=== PATIENT | male | born 1950 | race Caucasian/White ===

== ENCOUNTER → 2016-12-16 | Outpatient (CLI) | payer OTHER ==
--- NOTE | 2016-12-16 15:03 | CT ---
CT Chest Without Contrast 1155 hours Indication: Tobacco use. Evaluate for pulmonary nodule. Technique: Spiral images were obtained through the chest. Images were reviewed in multiple planes . Dose reduction techniques were utilized. Comparison: No prior studies available. Findings: Lung and large airways: No significant pulmonary nodules. There is a band of scarring in the left lo wer lobe posteriorly as well as right lung base posteriorly at the costophrenic angle. Bronchi: No significant bronchial wall thickening Pleura: Normal. Vessels: The thoracic aorta has a normal contour. There is no aneurysm or dissection. There is some s cattered atherosclerotic calcified plaques at the level of the aortic root and associated with the ao rtic valves as well as involving the proximal LAD. Heart and pericardium: Normal. Mediastinum and minoo: No mass or lymphadenopathy. Chest wall and lower neck: Normal. Limited upper abdomen: Surgical suture is seen at the junction of the liver with the inferior vena ca va along the superior and inferior margins. The patient apparently has had history of previous liver transplant. Skeletal system: Vertebral body heights are well-maintained. There are no lytic or sclerotic osseous lesions. There is underlying degenerative disk disease mid and lower thoracic spine. Old healed fract ures are seen associated with the posterior lateral right 10th and 11th ribs with ununited fracture o f the posterolateral right ninth rib. Impression: 1. No evidence of pulmonary nodule within the lung parenchyma. 2. Band of scarring left lower lobe posteriorly as well as right lung base at the costophrenic angle posteriorly. 3. Scattered arteriosclerotic calcified plaques of the level of the aortic root and in the aortic demetra ves as well as proximal LAD. 4. Surgical suture associated with the junction of the liver with the IVC along superior and inferior margins this patient with history of previous liver transplant.
== END ==
LOC: CIMAGING 11:45
PROVIDERS: ATTEND Family Medicine
DX: R91.8 Other nonspecific abnormal finding of lung field (principal)
CPT/HCPCS: 71250-PO

== ENCOUNTER 2017-10-11 12:24 | Inpatient (IN) | payer OTHER ==
[2017-10-11] MEDS ORDERED: NS 1,000 ML IV ONE ×3 (13:06→13:22)
[2017-10-11 13:15] LABS: % IMMATURE GRANULYOCYTES 0.6 % (0.0-1.1); ABSOLUTE IMMATURE GRANULOCYTES 0.06 10^3/uL (0.00-0.10); ADD DIFF? NO; ADD MORPH? NO; ADD SCAN? NO; ATYPICAL LYMPHOCYTE FLAG 0 (0-99); FRAGMENT RBC FLAG 0 (0-99); HEMATOCRIT 42.4 % (40.0-51.0); HEMOGLOBIN 14.4 g/dL (13.7-17.5); LEFT SHIFT FLG 0 (0-99); LIPEMIA HEMOLYSIS FLAG 90 (0-99); MEAN CELL HEMOGLOBIN 29.6 pg (27.9-34.1); MEAN CELL VOLUME 87.2 fL (81.5-99.8); MEAN PLATELET VOLUME 10.6 fL (8.7-11.7); PLATELET CLUMPS FLAG 0 (0-99); PLATELET COUNT 270 10^3/uL (150-400); RED BLOOD CELL COUNT 4.86 10^6/uL (4.40-6.38); RED CELL DISTRIBUTION WIDTH 14.9 % (11.5-15.2)
[2017-10-11] MEDS ORDERED: INSULIN REGULAR HUMAN 100 UNIT/ML IVP ONE (13:21)
--- NOTE | 2017-10-11 13:23 | EDPHY ---
HPI/HX/ROS/PE/MDM Narrative: CHIEF COMPLAINT: Elevated BGL, malaise HISTORY OF PRESENT ILLNESS: The patient is a 67 y/o male with a history of diabetes type two who arrives at the recommendation of his PCP for elevated BGL and associated malaise. He had a knee surgery one month ago and has noticed a slowly increasing BGL since then around 300. He normally just uses metformin and does not check his BGL daily. Five days ago he saw his PCP and his BGL was noted to be around 450. He was prescribed Lantus, but given no instructions on how to use it so he has not taken a dose yet. He saw his PCP today for continued hyperglycemia and their glucometer read "high" so they assumed it was over 600 and sent him to the ED for evaluation. He complains of progressively worsening symptoms for the past days to weeks including fuzzy vision, dizziness when standing, fatigue, nausea, polyuria, and two episodes of vomiting yesterday. He has some chronic lung congestion that may be slightly worse recently. He denies syncope, fever, flank pain, urinary pain, hematuria, chest pain, abdominal pain, chills, shortness of breath, palpitations, diarrhea, urinary complaints, or headache. He does not take anticoagulants and no longer takes a daily aspirin. REVIEW OF SYSTEMS: Aside from elements discussed in the HPI, a comprehensive 10-point review of systems was reviewed and is negative. PAST MEDICAL HISTORY: Liver transplant 4 years ago - Prograf and CellCept, hepatitis C (resolved), osteoarthritis with several joint replacements, hypertension - not medicated, hyperlipidemia SOCIAL HISTORY: PCP: Dr. Roberts VITAL SIGNS: Reviewed by me GENERAL: Well-developed, thin, resting comfortably in no respiratory distress. Not tachypneic. No kussmaul breathing. HEENT: Atraumatic. Eyes: No icterus, no injection. Mouth: very dry mucous membranes. No erythema or lesions. Neck: supple with no adenopathy. LUNGS: Clear to auscultation bilaterally, no wheezes, rhonchi or rales. CARDIAC: Regular rate and rhythm, no rubs, murmurs or gallops. ABDOMEN: Soft, nontender, nondistended, bowel sounds normal. BACK: No CVA tenderness. EXTREMITIES: No trauma. No edema. Range of motion is normal throughout. NEURO: Alert and oriented, grossly nonfocal. SKIN: Warm and dry, no rash. PSYCHIATRIC: Normal mentation, no agitation. Portions of this note were transcribed by a adjunct faculty for medical terminology. I personally performed a history, physical exam, medical decision making, and confirmed accuracy of information the transcribed note. ED Course: This is a 67 y/o male with a history of diabetes type two and is status post liver transplant who presents with a one-month gradually increasing BGL and associated malaise. He does not consistently measure his BGL at home and only takes metformin, though he was prescribed Lantus five days ago without instructions for use. He is thin but generally well-appearing aside from very dry mucous membranes. His BGL is >350 here on glucometer. Plan for DKA work up including IV, labs, UA, EKG, chest x-ray, and medical treatment with IV fluids and insulin. 2L IV NS and 10 units insulin ordered. The 12 lead EKG was interpreted by myself. Sinus rhythm rate 61. See hard copy and/or "tracemaster" electronic copy for interpretation. Chest x-ray: nothing acute. Labs show hyperglycemia of 693, hyponatremia of 125, and hypochloridemia of 88. His UA is positive for glucose and has trace ketones. His alkphos is elevated, though this may be related to his liver transplant. Spoke with hospitalist service. Dr. Yang accepts admission. Reevaluated patient and discussed plan for admission, which he agrees to. MDM: Differential diagnoses for the patient's symptom complex was considered including but not limited to DKA, hyperglycemia, occult infection, medication noncompliance, viral syndrome, infection, pneumonia. - Data Points Imaging Results: Imaging Impressions Chest X-Ray 10/11/17 13:21 Impression: No acute abnormality. Imaging: I viewed and interpreted images myself Laboratory Results: Laboratory Results 10/11/17 13:05 10/11/17 13:05 10/11/17 10/11/17 10/11/17 13:05 13:05 13:05 WBC 10.55 10^3/uL H 10^3/uL (3.80-9.50) RBC 4.86 10^6/uL 10^6/uL (4.40-6.38) Hgb 14.4 g/dL g/dL (13.7-17.5) Hct 42.4 % % (40.0-51.0) MCV 87.2 fL fL (81.5-99.8) MCH 29.6 pg pg (27.9-34.1) MCHC 34.0 g/dL g/dL (32.4-36.7) RDW 14.9 % % (11.5-15.2) Plt Count 270 10^3/uL 10^3/uL (150-400) MPV 10.6 fL fL (8.7-11.7) Neut % (Auto) 87.4 % H % (39.3-74.2) Lymph % (Auto) 5.4 % L % (15.0-45.0) Ceiba % (Auto) 5.8 % % (4.5-13.0) Eos % (Auto) 0.6 % % (0.6-7.6) Baso % (Auto) 0.2 % L % (0.3-1.7) Nucleat RBC Rel Count 0.0 % % (0.0-0.2) Absolute Neuts (auto) 9.23 10^3/uL H 10^3/uL (1.70-6.50) Absolute Lymphs (auto) 0.57 10^3/uL L 10^3/uL (1.00-3.00) Absolute Monos (auto) 0.61 10^3/uL 10^3/uL (0.30-0.80) Absolute Eos (auto) 0.06 10^3/uL 10^3/uL (0.03-0.40) Absolute Basos (auto) 0.02 10^3/uL 10^3/uL (0.02-0.10) Absolute Nucleated RBC 0.00 10^3/uL 10^3/uL (0-0.01) Immature Gran % 0.6 % % (0.0-1.1) Immature Gran # 0.06 10^3/uL 10^3/uL (0.00-0.10) Turbidity Cancelled Sodium Cancelled 125 mEq/L L mEq/L (134-144) Potassium Cancelled 5.4 mEq/L H mEq/L (3.5-5.2) Chloride Cancelled 88 mEq/L L mEq/L (97-110) Carbon Dioxide Cancelled 20 mEq/l L mEq/l (22-31) Anion Gap Cancelled 17 mEq/L H mEq/L (8-16) BUN Cancelled 19 mg/dL mg/dL (7-23) Creatinine Cancelled 0.7 mg/dL mg/dL (0.7-1.3) Estimated GFR Cancelled > 60 Glucose Cancelled 693 mg/dL H* mg/dL (70-100) Calcium Cancelled 10.1 mg/dL mg/dL (8.5-10.4) Phosphorus 4.3 mg/dL mg/dL (2.5-4.5) Magnesium 1.6 mg/dL mg/dL (1.6-2.3) Total Bilirubin Cancelled 0.6 mg/dL mg/dL (0.1-1.4) Conjugated Bilirubin Cancelled Unconjugated Bilirubin Cancelled AST Cancelled 56 IU/L IU/L (17-59) ALT Cancelled 81 IU/L H IU/L (21-72) Alkaline Phosphatase Cancelled 1362 IU/L H IU/L (38-126) Troponin I < 0.012 ng/mL ng/mL (0.000-0.034) Total Protein Cancelled 7.0 g/dL g/dL (6.3-8.2) Albumin Cancelled 3.9 g/dL g/dL (3.5-5.0) Lipase 48 IU/L IU/L (23-300) Beta-Hydroxybutyrate 2.41 mmol/L H mmol/L (0.02-0.27) Specimen Hemolysis Cancelled Urine Color Urine Appearance Urine pH Ur Specific Perry Urine Protein Urine Ketones Urine Blood Urine Nitrate Urine Bilirubin Urine Urobilinogen Ur Leukocyte Esterase Urine RBC Urine WBC Ur Epithelial Cells Urine Mucus Urine Glucose 10/11/17 12:48 WBC RBC Hgb Hct MCV MCH MCHC RDW Plt Count MPV Neut % (Auto) Lymph % (Auto) [place] % (Auto) Eos % (Auto) Baso % (Auto) Nucleat RBC Rel Count Absolute Neuts (auto) Absolute Lymphs (auto) Absolute Monos (auto) Absolute Eos (auto) Absolute Basos (auto) Absolute Nucleated RBC Immature Gran % Immature Gran # Turbidity Sodium Potassium Chloride Carbon Dioxide Anion Gap BUN Creatinine Estimated GFR Glucose Calcium Phosphorus Magnesium Total Bilirubin Conjugated Bilirubin Unconjugated Bilirubin AST ALT Alkaline Phosphatase Troponin I Total Protein Albumin Lipase Beta-Hydroxybutyrate Specimen Hemolysis Urine Color YELLOW Urine Appearance CLEAR Urine pH 5.0 (5.0-7.5) Ur Specific Perry 1.028 (1.002-1.030) Urine Protein NEGATIVE (NEGATIVE) Urine Ketones TRACE H (NEGATIVE) Urine Blood NEGATIVE (NEGATIVE) Urine Nitrate NEGATIVE (NEGATIVE) Urine Bilirubin NEGATIVE (NEGATIVE) Urine Urobilinogen NEGATIVE EU EU (0.2-1.0) Ur Leukocyte Esterase NEGATIVE (NEGATIVE) Urine RBC 5-10 /hpf H /hpf (0-3) Urine WBC 1-3 /hpf /hpf (0-3) Ur Epithelial Cells NONE SEEN /lpf /lpf (NONE-1+) Urine Mucus TRACE /lpf /lpf (NONE-1+) Urine Glucose 3+ H (NEGATIVE) Medications Given: Atorvastatin Calcium (Lipitor) 40 mg PO DAILY18 [facility] Stop: 04/09/18 17:59 Last Admin: 10/11/17 18:36 Dose: 40 mg Insulin Glargine (Lantus Syringe) 15 units SC HS [facility] Stop: 04/09/18 19:14 Last Admin: 10/11/17 21:57 Dose: 15 units Insulin Human Regular (Humulin R) 0 unit SC ACHS EMILY PRN Reason: Protocol Stop: 04/09/18 17:29 Last Admin: 10/11/17 21:57 Dose: 6 units Metformin HCl (Glucophage) 500 mg PO BIDMEAL [facility] Stop: 04/09/18 17:59 Last Admin: 10/11/17 18:36 Dose: 500 mg Mycophenolate Mofetil (Cellcept) 250 mg PO BID [facility] Stop: 04/09/18 20:59 Last Admin: 10/11/17 21:56 Dose: 250 mg Tacrolimus (Prograf) 2 mg PO BID [facility] Stop: 04/09/18 20:59 Last Admin: 10/11/17 21:56 Dose: 2 mg Ursodiol (Actigall) 600 mg PO BID [facility] Stop: 04/09/18 20:59 Last Admin: 10/11/17 21:56 Dose: 600 mg Discontinued Medications Sodium Chloride (Ns) 1,000 mls @ 3,000 mls/hr IV ONCE ONE Stop: 10/11/17 13:25 Last Admin: 10/11/17 13:08 Dose: 1,000 mls Sodium Chloride (Ns) 1,000 mls @ 0 mls/hr IV ONCE ONE; Wide Open PRN Reason: Protocol Stop: 10/11/17 13:22 Last Admin: 10/11/17 13:33 Dose: 1,000 mls Sodium Chloride (Ns) 1,000 mls @ 0 mls/hr IV ONCE ONE; Wide Open PRN Reason: Protocol Stop: 10/11/17 13:23 Last Admin: 10/11/17 14:01 Dose: Not Given Insulin Human Regular 100 unit / Miscellaneous Medication 1 ea/ Sodium Chloride 101 mls @ 4 mls/hr IV EDNOW ONE PRN Reason: Protocol Stop: 10/12/17 15:38 Last Admin: 10/11/17 16:29 Dose: Not Given Sodium Chloride (Ns) 1,000 mls @ 150 mls/hr IV CONT EMILY Stop: 04/09/18 14:59 Last Admin: 10/11/17 18:08 Dose: 1,000 mls Insulin Human Regular (Humulin R) 10 unit IVP EDNOW ONE Stop: 10/11/17 13:22 Last Admin: 10/11/17 13:35 Dose: 10 units General Time Seen by Provider: 10/11/17 12:59 Initial Vital Signs: Initial Vital Signs Temperature (C) 36.3 C 10/11/17 12:30 Heart Rate 97 10/11/17 12:30 Respiratory Rate 18 10/11/17 12:30 Blood Pressure 123/70 H 10/11/17 12:30 O2 Sat (%) 93 10/11/17 12:30 O2 Delivery Mode Room Air Allergies/Adverse Reactions: Penicillins Allergy (Severe, Verified 10/11/17 12:26) Anaphylaxis Home Medications: Medication Instructions Recorded Tacrolimus [Prograf] 2 mg PO BID 01/01/14 Allopurinol [Allopurinol 300 MG 300 mg PO DAILY 10/11/17 (RX)] Atorvastatin Calcium [Lipitor 40 40 mg PO DAILY18 10/11/17 mg (*)] Doxazosin Mesylate [Cardura 4 MG 4 mg PO DAILY 10/11/17 (*)] Insulin Glargine [Lantus 100 5 units SC HS 10/11/17 UNITS/ML (*)] Levothyroxine [Synthroid 88 mcg 88 mcg PO DAILY06 10/11/17 (*)] Mycophenolate Mofetil [Cellcept 250 mg PO BID 10/11/17 250 mg (RX)] Ursodiol [Actigall 300MG (*)] 600 mg PO BID 10/11/17 metFORMIN HCL [Glucophage 500 mg 500 mg PO BIDMEAL 10/11/17 (*)] oxyCODONE IR [Oxycodone Ir (*)] 10 mg PO Q6HRS PRN 10/11/17 Departure - Departure Disposition: [facility] Acute Clinical Impression: Hyponatremia, Hypochloremia DKA (diabetic ketoacidoses) Qualifiers: Diabetes mellitus type: type 2 Diabetes mellitus complication detail: without coma Qualified Code(s): E13.10 - Other specified diabetes mellitus with ketoacidosis without coma Condition: Fair Report Scribed for: Adele Saleh Report Scribed by: Chantal Landa Date of Report: 10/11/17 Time of Report: 13:23
[2017-10-11 13:33] LABS: ALANINE AMINOTRANSFERASE 81 IU/L (21-72); ALBUMIN 3.9 g/dL (3.5-5.0); ALKALINE PHOSPHATASE 1362 IU/L (38-126); ANION GAP 17 mEq/L (8-16); ASPARTATE AMINOTRANSFERASE 56 IU/L (17-59); BILIRUBIN,TOTAL 0.6 mg/dL (0.1-1.4); CALCIUM 10.1 mg/dL (8.5-10.4); CARBON DIOXIDE 20 mEq/l (22-31); CHLORIDE 88 mEq/L (97-110); CREATININE 0.7 mg/dL (0.7-1.3); GLOMERULAR FILTRATION RATE > 60; POTASSIUM 5.4 mEq/L (3.5-5.2); SODIUM 125 mEq/L (134-144)
[2017-10-11 13:49] LABS: COLOR YELLOW; LEUKOCYTE ESTERASE,URINE NEGATIVE (NEGATIVE); NITRITE,URINE NEGATIVE (NEGATIVE)
[2017-10-11 13:53] LABS: GLUCOSE 693 mg/dL (70-100)
[2017-10-11 14:02] LABS: MUCUS TRACE /lpf (NONE-1+)
[2017-10-11 14:15] LABS: MAGNESIUM 1.6 mg/dL (1.6-2.3)
[2017-10-11] MEDS ORDERED: INSULIN REGULAR HUMAN 100 UNIT, COSIGN. REQUIRED 1 EA in NS 100 ML IV ONE (14:24)
[2017-10-11 14:26] LABS: TROPONIN I < 0.012 ng/mL (0.000-0.034)
--- NOTE | 2017-10-11 14:39 | CPEKG ---
Heart Rate: 61 RR Interval: 984 P-R Interval: 148 QRSD Interval: 86 QT Interval: 408 QTC Interval: 411 P [place]: 11 QRS [place]: 52 T Wave [place]: 35 EKG Severity - NORMAL ECG - EKG Impression: SINUS RHYTHM Electronically Signed By: Adele Saleh 11-Oct-2017 22:42:15
[2017-10-11] MEDS ORDERED: D50W 25 GM/50 ML VIAL IVP PRN (14:48)
[2017-10-11] MEDS ORDERED: ONDANSETRON 4 MG/2 ML VIAL IVP PRN (14:50)
[2017-10-11] MEDS ORDERED: PROMETHAZINE HCL 25 MG/ML INJ IVP PRN (14:50)
[2017-10-11] MEDS ORDERED: ACETAMINOPHEN 325 MG TAB PO PRN (14:50)
[2017-10-11] MEDS ORDERED: oxyCODONE IR 5 MG TAB PO PRN (14:51)
[2017-10-11] MEDS ORDERED: NS 1,000 ML IV SCH ×2 (15:00)
[2017-10-11 15:26] LABS: B-HYDROXYBUTYRATE 2.41 mmol/L (0.02-0.27)
[2017-10-11 15:36] LABS: ANION GAP 7 mEq/L (8-16); CALCIUM 8.9 mg/dL (8.5-10.4); CARBON DIOXIDE 24 mEq/l (22-31); CHLORIDE 96 mEq/L (97-110); CREATININE 0.6 mg/dL (0.7-1.3); GLOMERULAR FILTRATION RATE > 60; GLUCOSE 443 mg/dL (70-100); POTASSIUM 4.5 mEq/L (3.5-5.2); SODIUM 127 mEq/L (134-144)
[2017-10-11] MEDS: ATORVASTATIN CALCIUM 40 MG TAB PO SCH (18:36)
[2017-10-11] MEDS: metFORMIN HCL 500 MG TAB PO SCH (18:36)
[2017-10-11] MEDS: INSULIN REGULAR HUMAN 100 UNIT/ML SC SCH ×2 (18:37→21:57)
[2017-10-11] MEDS ORDERED: INSULIN GLARGINE 100 UNITS/ML SYRINGE SC SCH (19:15)
--- NOTE | 2017-10-11 20:16 | GHP ---
[f rep st] HISTORY AND PHYSICAL DATE OF ADMISSION: 10/11/2017 CHIEF COMPLAINT: Hyperglycemia. HISTORY: The patient is a 67-year-old male who saw his primary care doctor 5 days ago and at that ti me his glucose was 450. He had recently been prescribed Lantus; however, he does not know how to adm inister it. He was hoping to get instructed on that today at his primary care doctor's office, but w favian they saw him they referred him to the emergency room. He describes 1 month of blurry vision, diz ziness, polyuria, polydipsia, nausea, vomiting, decreased p.o. intake and unintentional 5 pound weigh t loss. PAST MEDICAL HISTORY: 1. Diabetes type 2. 2. Liver transplantation done at [facility] a couple of years ago. 3. Hepatitis C status post Harvoni. MEDICATIONS: Please see computer record for full detailed list. ALLERGIES: Penicillin. SOCIAL HISTORY: He smokes a pack of cigarettes every 3 days. He drinks a couple of beers per day. He lives with 2 roommates. He is retired from the [employer] business. 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 REVIEW OF SYSTEMS: A complete review of systems obtained. Review of systems is negative regarding c onstitutional, HEENT, GI, pulmonary, cardiovascular, , hematology, skin, musculoskeletal, endocrine , psych except for positives and negatives as in HPI. FAMILY HISTORY: Reviewed and noncontributory to presenting complaint. PHYSICAL EXAMINATION: GENERAL: Well-developed, well-nourished male, in no distress. VITAL SIGNS: Temperature 36.3, pulse 63, blood pressure 123/70, satting 95% on room air. EYES: Normal conjunctiv ae. Pupils react to light. ENT: Normal ears and nose. Hearing intact. Normal teeth. Oropharynx moist. NECK: Trachea midline. No thyromegaly. CHEST: Normal effort. LUNGS: Clear to auscultati on bilaterally. CARDIOVASCULAR: Regular rhythm. No murmur. No lower extremity edema. ABDOMEN: S oft, nontender. No hepatosplenomegaly. SKIN: Warm, dry, intact. No rash. MUSCULOSKELETAL: No cy anosis or clubbing. Strength 5/5 upper and lower extremities. NEURO: Cranial nerves intact. Linda l sensation to light touch. PSYCHIATRIC: Alert and oriented x3. Normal affect. Normal judgment an d insight. Normal memory. LABS: White count 10.55, hematocrit 42.4, platelets 270. Sodium 125, potassium 5.5, chloride 88, bi carb 20, anion gap initially 7. Repeat Chem-7 shows anion gap down to 7. BUN 19, creatinine 0.7, gl ucose 643, ALT is 81, alk phos 1,362. Troponins negative. Urinalysis is negative. EKG viewed by me . My personal interpretation is normal sinus rhythm. No ST-T wave changes. Chest x-ray is negative . ASSESSMENT/PLAN: 1. Hyperglycemia with mild diabetic ketoacidosis. He got an initial insulin bolus in the emergency room with a couple liters of fluid and recheck of his Chem-7 shows that his gap has already closed so he was not started on insulin drip. I will start him on Lantus and he will need education regarding administration. We will continue IV fluid. 2. Hyponatremia. This is an effect of his hyperglycemia. 3. Liver transplantation. Continue his chronic immunosuppressives, including CellCept and Prograf. We will check an ultrasound given his abnormal LFTs. 4. Hepatitis C status post Harvoni. CODE STATUS: Full. ADMISSION STATUS: We will admit to observation as he might be able to go home tomorrow depending on clinical course. DVT PROPHYLAXIS: He is moderate risk. We will place him on subcu Lovenox. /[id number]/MODL
[2017-10-11] MEDS: MYCOPHENOLATE MOFETIL 250 MG CAP PO SCH (21:56)
[2017-10-11] MEDS: URSODIOL 300 MG CAP PO SCH (21:56)
[2017-10-11] MEDS: TACROLIMUS 1 MG CAP PO SCH (21:56)
[2017-10-12] MEDS: LEVOTHYROXINE 88 MCG TAB PO SCH (04:41)
[2017-10-12 05:55] LABS: % IMMATURE GRANULYOCYTES 0.3 % (0.0-1.1); ABSOLUTE IMMATURE GRANULOCYTES 0.03 10^3/uL (0.00-0.10); ADD DIFF? NO; ADD MORPH? NO; ADD SCAN? NO; ATYPICAL LYMPHOCYTE FLAG 0 (0-99); FRAGMENT RBC FLAG 0 (0-99); HEMATOCRIT 37.3 % (40.0-51.0); HEMOGLOBIN 13.3 g/dL (13.7-17.5); LEFT SHIFT FLG 0 (0-99); LIPEMIA HEMOLYSIS FLAG 90 (0-99); MEAN CELL HEMOGLOBIN 30.5 pg (27.9-34.1); MEAN CELL HEMOGLOBIN CONCENTR. 35.7 g/dL (32.4-36.7); MEAN CELL VOLUME 85.6 fL (81.5-99.8); MEAN PLATELET VOLUME 10.3 fL (8.7-11.7); PLATELET CLUMPS FLAG 0 (0-99); PLATELET COUNT 248 10^3/uL (150-400); RED BLOOD CELL COUNT 4.36 10^6/uL (4.40-6.38); RED CELL DISTRIBUTION WIDTH 14.8 % (11.5-15.2)
[2017-10-12 05:59] LABS: INR 1.12 (0.83-1.16); PROTIME(PATIENT) 14.3 SEC (12.0-15.0)
[2017-10-12 06:20] LABS: ALANINE AMINOTRANSFERASE 74 IU/L (21-72); ALBUMIN 2.7 g/dL (3.5-5.0); ALKALINE PHOSPHATASE 854 IU/L (38-126); ANION GAP 8 mEq/L (8-16); ASPARTATE AMINOTRANSFERASE 73 IU/L (17-59); BILIRUBIN,TOTAL 0.4 mg/dL (0.1-1.4); BILIRUBIN-CONJUGATED 0.3 mg/dL (0.0-0.5); BILIRUBIN-UNCONJUGATED 0.1 mg/dL (0.0-1.1); CALCIUM 8.9 mg/dL (8.5-10.4); CARBON DIOXIDE 24 mEq/l (22-31); CHLORIDE 99 mEq/L (97-110); CREATININE 0.6 mg/dL (0.7-1.3); GLOMERULAR FILTRATION RATE > 60; GLUCOSE 281 mg/dL (70-100); MAGNESIUM 1.4 mg/dL (1.6-2.3); POTASSIUM 4.5 mEq/L (3.5-5.2); SODIUM 131 mEq/L (134-144); TOTAL PROTEIN 5.5 g/dL (6.3-8.2)
[2017-10-12 06:45] LABS: CORTISOL-AM 11.5 ug/dL (4.5-22.7)
[2017-10-12] MEDS: INSULIN REGULAR HUMAN 100 UNIT/ML SC SCH ×5 (07:38→20:36)
[2017-10-12] MEDS: ALLOPURINOL 300 MG TAB PO SCH (07:39)
[2017-10-12] MEDS: metFORMIN HCL 500 MG TAB PO SCH (07:39)
[2017-10-12] MEDS: DOXAZOSIN MESYLATE 4 MG TAB PO SCH (07:40)
[2017-10-12] MEDS: TACROLIMUS 1 MG CAP PO SCH ×2 (07:40→20:35)
[2017-10-12] MEDS: URSODIOL 300 MG CAP PO SCH ×2 (07:40→20:35)
[2017-10-12] MEDS: MYCOPHENOLATE MOFETIL 250 MG CAP PO SCH ×2 (07:43→20:35)
[2017-10-12] MEDS: ENOXAPARIN 40 MG/0.4 ML SYR SC SCH (07:44)
[2017-10-12 09:31] LABS: HEMOGLOBIN A1C 13.1 % (4.0-6.0)
--- NOTE | 2017-10-12 11:35 | ASMTCASEMG ---
Living Arrangements What is your living Answers: Alone arrangement? Who do you live with? Type Of Residence What kind of residence do Answers: House you live in? Discharge Plan Comments Coordination Status Comments Notes: Patient is a 67yo single male who was admitted for hyperglycemia with mild diabetic ketoacidosis and hyponatremia. Patient had a liver transplant and has HEP C. He is currently observation status. OT/PT/SBIRT ordered. D/C needs TBD. CM will follow. Date Signed: 10/12/2017 11:34 AM Electronically Signed By:Sheree Freeman LCSW
--- NOTE | 2017-10-12 13:15 | HOSPPROG ---
Hospitalist Progress Note Assessment/Plan: Patient is a 67-year-old male who saw his doctor 5 days ago. At that time his glucose was 450. He was prescribed Lantus but was unclear how to administer it he also describes 1 in a month a blurry vision dizziness, polyuria, polydipsia, nausea, vomiting and an unintentional 5 lb weight loss. Today is my 1st encounter with the patient. Chart reviewed. * hyperglycemia and mild diabetic españa to acidosis -improving * newly diagnosed diabetes -glucose is still quite elevated, will increase Lantus dose -A1c is 13.1 with an average glucose of 329 * hyponatremia -better with hydration * history of liver transplant -resumed his chronic immunosuppressive is, CellCept and Prograf -ultrasound does not show anything acute * hepatitis C status post Harvoni treatment *Plan: will ask nutrition program instructor to see patient to help teach him about an ADA diet, call into endocrine to see if they can see/ he likely needs another oral agent. He has a hx of a liver transplant and will need lft's monitored closely. Glucoses are too elevated to safely discharge. He will require another midnight stay which will make him IP stay. Subjective: Mason says he is starting to feel better today. Objective: Vital Signs Temp Pulse Resp BP Pulse Ox 37 C 77 14 131/76 H 96 10/12/17 08:15 10/12/17 08:15 10/12/17 08:15 10/12/17 08:15 10/12/17 08:15 Laboratory Results 10/12/17 05:40 10/12/17 05:40 10/11/17 10/12/17 10/13/17 05:59 05:59 05:59 Intake Total 2750 Output Total 900 Balance 1850 PT 14.3 SEC (12.0-15.0) 10/12/17 05:40 INR 1.12 (0.83-1.16) 10/12/17 05:40 - Physical Exam Constitutional: chronically ill appearing, other (thin) Eyes: PERRL Ears, Nose, Mouth, Throat: hearing normal Cardiovascular: regular rate and rhythym Respiratory: no respiratory distress Gastrointestinal: normoactive bowel sounds Skin: warm Musculoskeletal: full muscle strength Neurologic: AAOx3 Psychiatric: interacting appropriately ICD10 Worksheet Patient Problems: Problems Problem Status Onset DKA (diabetic ketoacidoses) Acute Hypochloremia Acute Hyponatremia Acute Acquired thrombocytopenia Active Anemia of chronic disorder Active Chronic hepatitis C Active Disorder of liver Active Shoulder joint pain Active Shoulder pain Active Osteoarthritis of glenohumeral joint Acute
[2017-10-12] MEDS ORDERED: INSULIN GLARGINE 100 UNITS/ML SYRINGE SC SCH (15:22)
[2017-10-12] MEDS ORDERED: TEMAZEPAM 15 MG CAP PO PRN (16:33)
[2017-10-12] MEDS: ATORVASTATIN CALCIUM 40 MG TAB PO SCH (18:39)
--- NOTE | 2017-10-12 19:36 | PDMN ---
Medical Necessity Medical necessity: Change to IP, as of 10/12/17, per KILN PACKER; los >2 mn for ongoing medication management & monitoring of hyperglycemia w/blurry vision, dizziness, polyuria, polydipsia, n/v & an unintentional 5 lb wt loss; hx diabetes, liver transplant & hep C s/p Kelsy; per progress note & order 10/12/17
[2017-10-12] MEDS ORDERED: MELATONIN 3 MG TAB PO SCH (21:00)
[2017-10-12 23:23] VITALS: O2SAT 97
[2017-10-13] MEDS: LEVOTHYROXINE 88 MCG TAB PO SCH (05:05)
[2017-10-13 07:54] VITALS: BP 157/89; PULSE 60; RESP 16; TEMP 98
[2017-10-13] MEDS: INSULIN REGULAR HUMAN 100 UNIT/ML SC SCH ×4 (08:17→11:29)
[2017-10-13] MEDS: MYCOPHENOLATE MOFETIL 250 MG CAP PO SCH (08:18)
[2017-10-13] MEDS: URSODIOL 300 MG CAP PO SCH (08:19)
[2017-10-13] MEDS: ALLOPURINOL 300 MG TAB PO SCH (08:19)
[2017-10-13] MEDS: TACROLIMUS 1 MG CAP PO SCH (08:19)
[2017-10-13] MEDS: DOXAZOSIN MESYLATE 4 MG TAB PO SCH (08:20)
[2017-10-13] MEDS: ENOXAPARIN 40 MG/0.4 ML SYR SC SCH (08:20)
--- NOTE | 2017-10-13 11:21 | ASMTCMCOM ---
CM Note CM Note Notes: Spoke w/RN, pt cleared by PT/OT. Will dc today and go to 4:30 doctor's appt and then home, pt is independent, no needs. CM available for any changes. Date Signed: 10/13/2017 11:20 AM Electronically Signed By:Jenn Rhoades RN
--- NOTE | 2017-10-13 14:06 | GDS ---
[f rep st] DISCHARGE SUMMARY DISCHARGE DIAGNOSES: 1. Hyperglycemia. 2. Diabetes mellitus. 3. Hyponatremia. 4. History of liver transplant. 5. Hepatitis C. STUDIES AND PROCEDURES DONE: Abdominal ultrasound. PHYSICAL EXAM: GENERAL: The patient is alert. VITAL SIGNS: Afebrile at 36.7, pulse is 60, respira tory rate 16, blood pressure is 157/89. He is saturating 97% on room air. I have seen and evaluated the patient on the day of discharge. HOSPITAL COURSE: The patient is a 67-year-old male, who presented to the emergency room with an elev ated blood glucose. He was evaluated and diagnosed with: 1. Hyperglycemia, this has resolved. The patient has been initiated on Lantus. 2. Diabetes mellitus. This is a reoccurring diagnosis for the patient. He has been followed by his primary care physician in the outpatient setting. It is recommended that he follow up with Dr. Srikanth shankar of Endocrinology. He will be discharged to continue his Lantus in the outpatient setting. Th e patient states that he is unable to administer insulin via syringe and vial; it is recommended that he have pen insulin therapy in the outpatient setting. 3. Hyponatremia. This has resolved with hydration. 4. History of liver transplant. His home medications have been continued. 5. History of hepatitis C. He has received treatment. DISPOSITION: The patient will be discharged home. He has an appointment with his primary care physi hallie today at 4:30. He will see Dr. Roberts, who will assist in his Lantus regimen. He will then al so follow up with Dr. Chatterjee in the outpatient setting for further assistance in his diabetic man agement. PENDING STUDIES: There are no pending studies. DISCHARGE MEDICATIONS: Please refer to EMR form. The patient has been continued on Lantus 20 units subcu. His metformin has been discontinued, given history of liver transplant. FOLLOWUP INSTRUCTIONS: Again, he has received diabetic education during this hospitalization, and wi ll follow up with his primary care physician at 4:30 this afternoon for further recommendations and m edication management. I spent greater than 35 minutes in the care, coordination, and management of the patient's dispositio n. /[id number]/MODL
--- NOTE | 2017-10-13 17:23 | ASDISCHSUM ---
Discharge Information Plan Status:Home with No Needs Medically Cleared to Leave: Discharge Date:10/13/2017 04:05 PM CM D/C Disposition:Home, Routine, Self-Care ADT D/C Disposition:Home, Routine, Self-Care Projected Discharge Date:10/13/2017 04:05 PM Transportation at D/C: Discharge Delay Reason: Follow-Up Date:10/13/2017 04:05 PM Discharge Slot: Final Diagnosis: Placement Information Patient Contact Information Contact Name:MARIBEL Relationship:Margret Address: Work Phone: City: [facility] Phone: State/Zip Code: Email: Financial Information Financial Class: Primary Plan Desc:MEDICARE INPATIENT Primary Plan Number:[id number] Secondary Plan Desc:JOE Secondary Plan Number:[id number] Assessment Information [facility] Initial CM Assessment Living Arrangements What is your living Answers: Alone arrangement? Who do you live with? Type Of Residence What kind of residence do Answers: House you live in? Discharge Plan Comments Coordination Status Comments Notes: Patient is a 67yo single male who was admitted for hyperglycemia with mild diabetic ketoacidosis and hyponatremia. Patient had a liver transplant and has HEP C. He is currently observation status. OT/PT/SBIRT ordered. D/C needs TBD. CM will follow. Date Signed: 10/12/2017 11:34 AM Electronically Signed By:Sheree Freeman LCSW [facility] CM Progress Note CM Note CM Note Notes: Spoke w/RN, pt cleared by PT/OT. Will dc today and go to 4:30 doctor's appt and then home, pt is independent, no needs. CM available for any changes. Date Signed: 10/13/2017 11:20 AM Electronically Signed By:Jenn Rhoades RN Intervention Information Intervention Type:*BOWEN-Signed Date of Service:10/12/2017 09:50 AM Patient Type:Observation Staff Member:Ana Langley Hours: Discipline: Severity: Comment: Intervention Type:*Mary Jo 72 Date of Service:10/11/2017 04:32 PM Patient Type:Inpatient Staff Member:LORENZO Marin, Bhakti Hours: Discipline: Severity: Comment:
== END 2017-10-13 16:05 | disposition home or self-care (01) | DRG 638 ==
LOC: F3E 16:49 → INTOOBSV 10-12 15:22 → OBSVTOIN 10-12 15:22
PROVIDERS: ADMIT Internal Medicine; ATTEND Internal Medicine
DX: E11.65 Type 2 diabetes mellitus with hyperglycemia (principal); E87.1 Hypo-osmolality and hyponatremia; Z94.4 Liver transplant status; I10 Essential (primary) hypertension; E78.5 Hyperlipidemia, unspecified; F17.210 Nicotine dependence, cigarettes, uncomplicated
CPT/HCPCS: 96374; 97116-GP; 97161-GP; 97165-GO; G0378; G8978-GP-CI; G8979-GP-CI; G8980-GP-CI; G8987-GO-CI; G8988-GO-CI; J1650; J1815; J7507

== ENCOUNTER → 2018-02-22 | Outpatient (CLI) | payer OTHER | LOC: BHLMT 11:30 | PROVIDERS: ATTEND Internal Medicine Interventional Cardiology | DX: R01.1 Cardiac murmur, unspecified (principal) | CPT/HCPCS: 93306-PO ==

== ENCOUNTER → 2018-03-01 | Outpatient (CLI) | payer OTHER | LOC: FIMAGING 18:43 | PROVIDERS: ATTEND Orthopaedic Surgery | DX: M51.35 Other intervertebral disc degeneration, thoracolumbar region (principal); M51.36 Other intervertebral disc degeneration, lumbar region; M48.061 Spinal stenosis, lumbar region without neurogenic claudication; M47.895 Other spondylosis, thoracolumbar region; M47.896 Other spondylosis, lumbar region ==

== ENCOUNTER → 2018-08-18 | Outpatient (CLI) | payer OTHER | LOC: FIMAGING 14:13 | PROVIDERS: ATTEND Family Medicine | DX: Z13.820 Encounter for screening for osteoporosis (principal); E07.9 Disorder of thyroid, unspecified; Z79.899 Other long term (current) drug therapy; Z94.4 Liver transplant status ==

== ENCOUNTER → 2018-08-29 | Outpatient (CLI) | payer OTHER | LOC: GIMAGING 13:56 | PROVIDERS: ATTEND Family Medicine | DX: M50.30 Other cervical disc degeneration, unspecified cervical region (principal) | CPT/HCPCS: 72050-PO ==